=== PATIENT | male | born 1960 | race Caucasian/White ===

== ENCOUNTER 2019-03-12 08:09 | Day surgery (SDC) | payer BC ==
[~2019-03-12 08:09] MED LIST: Midazolam 1 MG/ML 2 ML SDV ONE; Propofol 200 MG/20 ML SDV ONE; fentaNYL 100 MCG/2 ML SDV ONE
--- NOTE | 2019-03-12 09:37 | PCM.PREANE ---
Preanesthetic Assessment - Anesthesia/Transfusion/Family Hx Anesthesia History: Prior Anesthesia Without Reaction Family History of Anesthesia Reaction: No Transfusion History: No Prior Transfusion(s) Intubation History: Unknown - Review of Systems General: No Symptoms Pulmonary: No Symptoms Cardiovascular: No Symptoms Gastrointestinal: Diarrhea, Other (strong family h/o colon cancer) Neurological: No Symptoms Other: Reports: None - Physical Assessment O2 Sat by Pulse Oximetry: 94 Respiratory Rate: 16 Vital Signs: Last Vital Signs Temp 36.4 C 03/12/19 08:33 Pulse 83 03/12/19 08:33 Resp 16 03/12/19 08:33 BP 125/83 03/12/19 08:33 Pulse Ox 94 L 03/12/19 08:33 Height: 5 ft 10 in Weight: 117.48 kg ASA Class: 3 Mental Status: Alert & Oriented x3 Airway Class: Mallampati = 2 Dentition: Reports: Normal Dentition Thyro-Mental Finger Breadths: 3 Mouth Opening Finger Breadths: 3 ROM/Head Extension: Full Lungs: Clear to Auscultation, Normal Respiratory Effort Cardiovascular: Regular Rate, Regular Rhythm - Allergies Allergies/Adverse Reactions: Allergies Allergy/AdvReac Type Severity Reaction Status Date / Time Penicillins Allergy Rash Verified 03/09/19 10:17 - Blood Blood Available: No - Anesthesia Plan Pre-Op Medication Ordered: None - Acknowledgements Anesthesia Type Planned: MAC Pt an Appropriate Candidate for the Planned Anesthesia: Yes Alternatives and Risks of Anesthesia Discussed w Pt/Guardian: Yes Pt/Guardian Understands and Agrees with Anesthesia Plan: Yes PreAnesthesia Questionnaire HEENT History: Reports: None Cardiovascular History: Reports: High Cholesterol, Hypertension, Other (See Below) (thoracic aortic aneurysm) Respiratory History: Reports: Sleep Apnea Other Respiratory History: uses Bipap Gastrointestinal History: Reports: Bowel Obstruction, Colon Polyp, Hemorrhoids, PUD Other Gastrointestinal History: hx gastric ulcer, hx small bowel obstruction releaved with NG tube 6 years ago Genitourinary History: Reports: None Musculoskeletal History: Reports: Osteoarthritis Neurological History: Reports: Concussion Psychiatric History: Reports: None Endocrine/Metabolic History: Reports: Obesity/BMI 30+ Hematologic History: Reports: Polycythemia (polycythemia diana- improved) Immunologic History: Reports: None Oncologic (Cancer) History: Reports: None Dermatologic History: Reports: None - Past Surgical History Head Surgeries/Procedures: Reports: None HEENT Surgical History: Reports: None Cardiovascular Surgical History: Reports: None Respiratory Surgical History: Reports: None GI Surgical History: Reports: Appendectomy, Cholecystectomy Male Surgical History: Reports: None Endocrine Surgical History: Reports: None Neurological Surgical History: Reports: None Musculoskeletal Surgical History: Reports: Arthroscopic Knee, Carpal Tunnel, Hip Replacement Other Musculoskeletal Surgeries/Procedures:: hx left TA Oncologic Surgical History: Reports: None Dermatological Surgical History: Reports: None - SUBSTANCE USE Smoking Status *Q: Former Smoker Recreational Drug Use History: No - HOME MEDS Home Medications: Home Meds Aspirin [[place] Aspirin EC] 2 tab PO DAILY 12/26/15 [History] Testosterone Cypionate 0.75 ml IM WEEKLY 12/26/15 [History] Montelukast Sodium 10 mg PO DAILY 05/30/17 [History] Rosuvastatin Calcium 20 mg PO BEDTIME 05/30/17 [History] Clindamycin Phosphate 1 applic TOP ASDIRECTED PRN 03/09/19 [History] Cyclobenzaprine HCl 0.5 - 1 tab PO BEDTIME PRN 03/09/19 [History] Hydrochlorothiazide [Microzide] 12.5 mg PO DAILY 03/09/19 [History] Hydrocortisone [Proctosol-HC] 1 applic RECTAL ASDIRECTED PRN 03/09/19 [History] Losartan [Cozaar] 100 mg PO DAILY 03/09/19 [History] Multivitamin [Multivitamins] 1 tab PO DAILY 03/09/19 [History] Saw [place] 2 tab PO DAILY 03/09/19 [History] Tadalafil 20 mg PO ASDIRECTED PRN 03/09/19 [History] amLODIPine Besylate [Amlodipine Besylate] 10 mg PO DAILY 03/09/19 [History] - CURRENT (IN HOUSE) MEDS Current Meds: Current Medications Discontinued Medications Fentanyl (Sublimaze) Confirm Administered Dose 100 mcg .ROUTE .STK-MED ONE Stop: 03/12/19 07:18 Midazolam HCl (Versed 1 Mg/Ml) Confirm Administered Dose 2 mg .ROUTE .STK-MED ONE Stop: 03/12/19 07:18 Propofol (Diprivan 20 Ml) Confirm Administered Dose 200 mg .ROUTE .STK-MED ONE Stop: 03/12/19 07:18
[2019-03-12] MEDS ORDERED: Sodium Chloride 0.9% 20 ML ONE (09:53)
[2019-03-12] MEDS ORDERED: cefOXitin 1 GM Vial ONE ×2 (09:53→10:00)
[2019-03-12] MEDS ORDERED: Propofol 200 MG/20 ML SDV ONE (11:13)
--- NOTE | 2019-03-12 11:30 | PCM.OPNOTE ---
- General Post-Op/Procedure Note Date of Surgery/Procedure: 03/12/19 Operative Procedure(s): Colonoscopy with biopsy Findings: Sigmoid colon polyp Pre Op Diagnosis: Family history of colon cancer Post-Op Diagnosis: Sigmoid colon polyp Anesthesia Technique: [facility] [place] Primary Surgeon: Kaitlynn Swift Condition: Good
--- NOTE | 2019-03-12 11:43 | PCM.POSTAN ---
POST ANESTHESIA ASSESSMENT - MENTAL STATUS Mental Status: Alert (0), Oriented - RESPIRATORY Respiratory Status: Respiratory Rate WNL, Airway Patent, O2 Saturation Stable - CARDIOVASCULAR CV Status: Pulse Rate WNL, Blood Pressure Stable - GASTROINTESTINAL GI Status: No Symptoms - POST OP HYDRATION Hydration Status: Adequate & Stable - OBSERVATIONS Free Text/Narrative:: no anesthesia problems
[2019-03-12 12:15] VITALS: BP 104/63
--- NOTE | 2019-03-12 12:41 | OR ---
SURGEON: KAITLYNN SWIFT MD DATE OF PROCEDURE: 03/12/2019 PREOPERATIVE DIAGNOSIS: Family history of colon cancer. POSTOPERATIVE DIAGNOSIS: Sigmoid colon polyp. PROCEDURE PERFORMED: Screening colonoscopy. PRIMARY SURGEON: Endoscopist, Kaitlynn Swift MD. ANESTHESIA: MAC. INSTRUMENT USED: Olympus colonoscope. EXTENT OF EXAM: To the cecum. PREPARATION: Good. LIMITATIONS: None. INDICATION FOR EXAMINATION: The patient is a 58-year-old male who presents for a repeat colonoscopy. He has a strong family history of colon cancer. The patient and I discussed the procedure, expected perioperative course, and risks including bleeding, infection, or damage to surrounding structures including perforation. The patient verbalized understanding and wishes to proceed. PROCEDURE IN DETAIL: The patient was brought into the endoscopy suite and placed in the left lateral decubitus position. A time-out was completed verifying the patient's name, age, date of , allergies, and procedure to be performed. Monitored anesthesia care was induced and continuous oxygen was provided via nasal cannula throughout the procedure. After adequate sedation was achieved, a digital rectal exam was performed. This exam was within normal limits. A well lubricated colonoscope was inserted into the rectum and advanced under direct visualization to the level of the cecum. The cecum was identified by both visual and anatomic landmarks. A photograph was taken of the cecal cap. However, due to looping of the scope more proximally, I was unable to retroflex the scope within the cecum. The scope was then fully withdrawn while examining the color, texture, anatomy, and integrity of the mucosa from the cecum to the anal canal. The patient had 1 sessile sigmoid colon polyp which was removed in piecemeal fashion using a cold biopsy forceps. The scope was then brought into the rectum and retroflexed to allow visualization of the anal canal opening. This appeared normal and a photograph was taken. The scope was then straightened out and fully withdrawn. The cecum to anus time was 10 minutes. The patient tolerated the procedure well and was taken to the PACU in stable condition. ENDOSCOPIC DIAGNOSIS: Sigmoid colon polyp. RECOMMENDATIONS: Follow up in clinic in 2 weeks. JULIETA OSORIO /[id number]
== END 2019-03-12 12:33 | disposition home or self-care (01) ==
LOC: MW.SDS 08:09
PROVIDERS: ATTEND Surgery
DX: Z12.11 Encounter for screening for malignant neoplasm of colon (principal); D12.5 Benign neoplasm of sigmoid colon; Z80.0 Family history of malignant neoplasm of digestive organs; I10 Essential (primary) hypertension; E78.5 Hyperlipidemia, unspecified; E78.00 Pure hypercholesterolemia, unspecified; G47.30 Sleep apnea, unspecified; E66.9 Obesity, unspecified; Z68.37 Body mass index [BMI] 37.0-37.9, adult; Z87.891 Personal history of nicotine dependence; Z88.0 Allergy status to penicillin; M19.90 Unspecified osteoarthritis, unspecified site; Z79.82 Long term (current) use of aspirin; Z79.52 Long term (current) use of systemic steroids; Z99.89 Dependence on other enabling machines and devices
CPT/HCPCS: 45380; J0694; J2250; J2704; J3010; 88305

== ENCOUNTER 2024-06-30 10:27 | Day surgery (SDC) | payer BC ==
[~2024-06-30 10:27] MED LIST changes: -Midazolam 1 MG/ML 2 ML SDV ONE; -Propofol 200 MG/20 ML SDV ONE; +Sodium Chloride 0.9% 10 ML Syringe FLUSH PRN; +Sodium Chloride 0.9% 2.5 ML Syringe FLUSH PRN; +Sodium Chloride 0.9% 20 ML SDV IV PRN; -fentaNYL 100 MCG/2 ML SDV ONE
[2024-06-30] MEDS: Lactated Ringers 1,000 ML IV SCH (11:00)
[2024-06-30] MEDS ORDERED: Propofol 200 MG/20 ML SDV ONE ×2 (13:17→13:46)
[2024-06-30 14:37] VITALS: BP 106/64; PULSE 79
== END 2024-06-30 14:55 | disposition home or self-care (01) ==
LOC: MW.SDS 10:27
PROVIDERS: ATTEND Surgery
DX: D12.3 Benign neoplasm of transverse colon (principal); Z86.0100 Personal history of colon polyps, unspecified; Z80.0 Family history of malignant neoplasm of digestive organs; K59.09 Other constipation; I10 Essential (primary) hypertension; E78.5 Hyperlipidemia, unspecified; G47.33 Obstructive sleep apnea (adult) (pediatric); Z87.891 Personal history of nicotine dependence; Z79.82 Long term (current) use of aspirin; Z79.899 Other long term (current) drug therapy; Z88.0 Allergy status to penicillin
CPT/HCPCS: 45380; J2704; J7120; 00811